=== PATIENT | male | born 1990 | race Caucasian/White ===

== ENCOUNTER 2020-07-26 02:31 | Emergency (ER) | payer BC ==
[~2020-07-26] VITALS: Ht 172.7 cm; Wt 93.0 kg
== END 2020-07-26 03:32 | disposition home or self-care (01) ==
LOC: ER 02:31
DX: M25.512 Pain in left shoulder (principal); Z87.828 Personal history of other (healed) physical injury and trauma
CPT/HCPCS: 73030; 99283-25